=== PATIENT | female | born 1960 | race Caucasian/White ===

== ENCOUNTER 2019-08-15 07:05 | Day surgery (SDC) | payer BC, OTHER ==
[~2019-08-15 07:05] MED LIST: Lactated Ringers 1,000 ML IV SCH; Sodium Chloride 0.9% 10 ML SDV IV PRN; Sodium Chloride 0.9% 10 ML Syringe FLUSH PRN; Sodium Chloride 0.9% 2.5 ML Syringe FLUSH PRN
--- NOTE | 2019-08-15 07:52 | PCM.PREANE ---
Preanesthetic Assessment - Anesthesia/Transfusion/Family Hx Anesthesia History: Prior Anesthesia Reaction (personal hx of diff airwy) Other Type of Anesthesia Reaction Comment: difficult intubation Family History of Anesthesia Reaction: Yes (diff intubation in family) Transfusion History: Prior Transfusion Without Reaction - Review of Systems General: No Symptoms Pulmonary: No Symptoms Cardiovascular: No Symptoms Gastrointestinal: No Symptoms Neurological: No Symptoms Other: Reports: None - Physical Assessment NPO Status Date: 08/14/19 Height: 5 ft 6 in Weight: 95.254 kg ASA Class: 2 Mental Status: Alert & Oriented x3 Airway Class: Mallampati = 3 Dentition: Reports: Normal Dentition ROM/Head Extension: Full Lungs: Clear to Auscultation, Normal Respiratory Effort - Allergies Allergies/Adverse Reactions: Allergies Allergy/AdvReac Type Severity Reaction Status Date / Time meperidine HCl [From Demerol] Allergy Vomiting Verified 08/11/19 11:43 metronidazole [From Flagyl] Allergy Vomiting Verified 08/11/19 11:43 - Blood Blood Available: No - Acknowledgements Anesthesia Type Planned: General Anesthesia (TIVA) Pt an Appropriate Candidate for the Planned Anesthesia: Yes Alternatives and Risks of Anesthesia Discussed w Pt/Guardian: Yes Pt/Guardian Understands and Agrees with Anesthesia Plan: Yes Additional Comments: PMH: 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 [employer], asthma-well controlled, AJITH uses CPAP PLAN: TIVA PreAnesthesia Questionnaire HEENT History: Reports: Other (See Below) Other HEENT History: has "bonding" on upper front teeth, uses glasses for reading Cardiovascular History: Reports: Heart Murmur Other Cardiovascular History: has "mild" mitral valve regurgitation Respiratory History: Reports: Sleep Apnea Other Respiratory History: uses CPAP Gastrointestinal History: Reports: Other (See Below) Other Gastrointestinal History: rare heartburn [employer] History: Reports: Musculoskeletal History: Reports: Back Pain, Chronic, Neck Pain, Chronic Endocrine/Metabolic History: Reports: Obesity/BMI 30+ Hematologic History: Reports: Blood Transfusion(s) - Past Surgical History Head Surgeries/Procedures: Reports: None HEENT Surgical History: Reports: Tonsillectomy GI Surgical History: Reports: Cholecystectomy, Colonoscopy Female Surgical History: Reports: D&C, Hysterectomy, Other (See Below) Other Female Surgeries/Procedures: hx of pelvic laparoscopies Neurological Surgical History: Reports: Laminectomy, Lumbar Spine - SUBSTANCE USE Smoking Status *Q: Former Smoker Tobacco Use Within Last Twelve Months: No Recreational Drug Use History: No - HOME MEDS Home Medications: Home Meds Zolpidem [Ambien CR] 10 mg PO BEDTIME PRN 09/27/13 [History] Loratadine/Pseudoephedrine [Claritin-D 12 Hour] 1 tab PO DAILY PRN 10/21/13 [ History] Ibuprofen 800 mg PO ASDIRECTED PRN 08/11/19 [History] estradioL [Estradiol] 0.5 mg PO DAILY 08/11/19 [History] - CURRENT (IN HOUSE) MEDS Current Meds: Current Medications Lactated Ringer's (Ringers, Lactated) 1,000 mls @ 125 mls/hr IV ASDIRECTED LAUREN Sodium Chloride (Saline Flush) 10 ml FLUSH ASDIRECTED PRN PRN Reason: Keep Vein Open Sodium Chloride (Saline Flush) 2.5 ml FLUSH ASDIRECTED PRN PRN Reason: Keep Vein Open Sodium Chloride (Saline Flush) 10 ml FLUSH ASDIRECTED PRN PRN Reason: Keep Vein Open Sodium Chloride (Saline Flush) 2.5 ml FLUSH ASDIRECTED PRN PRN Reason: Keep Vein Open Sodium Chloride (Normal Saline) 10 ml IV ASDIRECTED PRN PRN Reason: IV Use
[2019-08-15] MEDS ORDERED: Propofol 200 MG/20 ML SDV ONE ×3 (08:18→09:23)
--- NOTE | 2019-08-15 09:44 | PCM.OPNOTE ---
- General Post-Op/Procedure Note Operative Procedure(s): Diagnostic colonoscopy with polypectomy Findings: Cecal polyp, transverse colon polyp x 2, sigmoid colon polyp x 2 Pre Op Diagnosis: History of colon polyps Post-Op Diagnosis: Cecal polyp, transverse colon polyp x 2, sigmoid colon polyp x 2 Anesthesia Technique: MAC Primary Surgeon: Tonia Askew Condition: Good
--- NOTE | 2019-08-15 09:59 | PCM.POSTAN ---
POST ANESTHESIA ASSESSMENT - MENTAL STATUS Mental Status: Alert, Oriented - VITAL SIGNS Vital Signs: Last Vital Signs Temp 38.5 C H 08/15/19 07:54 Pulse 64 08/15/19 09:45 Resp 12 08/15/19 09:45 BP 105/57 L 08/15/19 09:45 Pulse Ox 95 08/15/19 09:45 - RESPIRATORY Respiratory Status: Respiratory Rate WNL, Airway Patent, O2 Saturation Stable - CARDIOVASCULAR CV Status: Pulse Rate WNL, Blood Pressure Stable - GASTROINTESTINAL GI Status: No Symptoms - POST OP HYDRATION Hydration Status: Adequate & Stable (meets PARII discharge criteria)
--- NOTE | 2019-08-15 10:28 | PCM48HPAN ---
Post Anesthesia Note - EVALUATION WITHIN 48HRS OF ANESTHETIC Vital Signs in Normal Range: Yes Patient Participated in Evaluation: Yes Respiratory Function Stable: Yes Airway Patent: Yes Cardiovascular Function Stable: Yes Hydration Status Stable: Yes Pain Control Satisfactory: Yes Nausea and Vomiting Control Satisfactory: Yes Mental Status Recovered: Yes Vital Signs: Last Vital Signs Temp 101.3 F H 08/15/19 07:54 Pulse 64 08/15/19 09:45 Resp 12 08/15/19 09:45 BP 105/57 L 08/15/19 09:45 Pulse Ox 95 08/15/19 09:45
--- NOTE | 2019-08-15 11:18 | OR ---
SURGEON: TONIA ASKEW MD DATE OF PROCEDURE: 08/15/2019 PREOPERATIVE DIAGNOSIS: History of colon polyps. POSTOPERATIVE DIAGNOSES: 1. Cecal polyp. 2. Transverse colon polyps x2. 3. Sigmoid colon polyps x2. PROCEDURE PERFORMED: Diagnostic colonoscopy with polypectomy. PRIMARY SURGEON: Tonia Askew MD. ANESTHESIA: MAC. INSTRUMENT USED: Olympus colonoscope. EXTENT OF EXAM: To the cecum. PREPARATION: Good. LIMITATIONS: None. INDICATIONS FOR EXAMINATION: The patient is a 58-year-old female who presents for 5-year followup colonoscopy. During her last colonoscopy, she was found to have 2 tubular adenomas. The patient and I discussed the need for repeat colonoscopy with possible polypectomy. I explained the procedure, expected perioperative course, and risks including bleeding, infection, or damage to surrounding structures including perforation. The patient verbalized understanding and wishes to proceed. PROCEDURE IN DETAIL: The patient was brought to the OR and placed in the cart in left lateral decubitus position. A time-out was completed verifying the patient's name, age, date of , allergies, and procedure to be performed. Monitored anesthesia care was induced and continuous oxygen was provided via nasal cannula throughout the procedure. After adequate sedation was achieved, a digital rectal exam was performed. This exam was within normal limits. A well-lubricated colonoscope was inserted into the rectum and advanced under direct visualization to the level of the cecum. The cecum was identified by both visual and anatomic landmarks. A photograph was taken of the cecal cap, however, I was unable to retroflex the scope within the cecum due to looping of the scope more proximally due to redundancy in the colon. The scope was fully withdrawn while examining the color, texture, anatomy, and integrity of the mucosa from the cecum to the anal canal. A photograph was taken of the terminal ileum. This appeared normal. Just above this was a small sessile polyp. This was removed in piecemeal fashion using a cold biopsy forceps. It was sent to pathology, labeled as cecal polyp. In the proximal transverse colon, the patient was found to have 2 small sessile polyps as well. These were removed in similar fashion. In the mid and distal colon, 2 more similar-appearing polyps were found. These were removed in piecemeal fashion and sent to pathology labeled as sigmoid colon polyps. The scope was then brought into the rectum and retroflexed to allow visualization of the anal canal opening. This appeared normal and a photograph was taken. The scope was straightened out and fully withdrawn. The cecum to anus time was 18 minutes. The patient tolerated the procedure well and was transferred to the PACU in stable condition. ENDOSCOPIC DIAGNOSES: 1. Cecal polyp. 2. Transverse colon polyps x2. 3. Sigmoid colon polyps x2. RECOMMENDATIONS: Follow up in clinic in 2 weeks. CAMMIE OLSON /[id number]
[2019-08-15 12:28] VITALS: BP 103/62; PULSE 65
== END 2019-08-15 10:30 | disposition home or self-care (01) ==
LOC: MW.SDS 07:05
PROVIDERS: ATTEND Surgery
DX: Z12.11 Encounter for screening for malignant neoplasm of colon (principal); D12.0 Benign neoplasm of cecum; D12.3 Benign neoplasm of transverse colon; D12.5 Benign neoplasm of sigmoid colon; J45.909 Unspecified asthma, uncomplicated; E66.9 Obesity, unspecified; Z88.1 Allergy status to other antibiotic agents; Z88.5 Allergy status to narcotic agent; Z79.899 Other long term (current) drug therapy; Z87.891 Personal history of nicotine dependence; Z86.010 Personal history of colon polyps; Z98.890 Other specified postprocedural states; Z68.33 Body mass index [BMI] 33.0-33.9, adult
CPT/HCPCS: 45380; 45385; 88305; J2704; J7120

== ENCOUNTER 2022-08-12 08:40 | Day surgery (SDC) | payer BC, OTHER ==
[~2022-08-12 08:40] MED LIST changes: -Sodium Chloride 0.9% 10 ML SDV IV PRN; +Sodium Chloride 0.9% 20 ML SDV IV PRN
[2022-08-12] MEDS ORDERED: Propofol 200 MG/20 ML SDV ONE (10:22)
[2022-08-12 13:53] VITALS: BP 102/56; PULSE 64
== END 2022-08-12 11:55 | disposition home or self-care (01) ==
LOC: MW.SDS 08:40
PROVIDERS: ATTEND Surgery
DX: Z12.11 Encounter for screening for malignant neoplasm of colon (principal); D12.3 Benign neoplasm of transverse colon; K62.1 Rectal polyp; K57.30 Diverticulosis of large intestine without perforation or abscess without bleeding; J45.909 Unspecified asthma, uncomplicated; E66.9 Obesity, unspecified; I34.0 Nonrheumatic mitral (valve) insufficiency; K82.8 Other specified diseases of gallbladder; G47.33 Obstructive sleep apnea (adult) (pediatric); Z88.5 Allergy status to narcotic agent; Z88.8 Allergy status to other drugs, medicaments and biological substances; Z91.013 Allergy to seafood; Z79.899 Other long term (current) drug therapy; Z90.49 Acquired absence of other specified parts of digestive tract; Z87.891 Personal history of nicotine dependence; Z86.010 Personal history of colon polyps; Z20.822 Contact with and (suspected) exposure to COVID-19; Z68.31 Body mass index [BMI] 31.0-31.9, adult
CPT/HCPCS: 45380; J2704; J7120